=== PATIENT | male | born 1940 | race Caucasian/White ===

== ENCOUNTER 2016-11-11 15:08 | Emergency (ER) | payer MEDICARE, OTHER ==
[~2016-11-11] VITALS: Ht 188 cm; Wt 86.2 kg
[~2016-11-11 15:08] MED LIST: ASPI-999 PO; BACL10TA PO; GLUC500C2 PO; KETO-22 PO; OMG1KC PO
[2016-11-11] MEDS ORDERED: MULT-1049 PO (15:31)
[2016-11-11] MEDS ORDERED: [UNRECOGNIZED DRUG - OTHER] PO (15:31)
[2016-11-11] MEDS ORDERED: HYAL1CAP PO (15:31)
[2016-11-11] MEDS ORDERED: MAGN400T39 PO (15:31)
[2016-11-11 15:37] LABS: BASOPHILS % (AUTO) 0 % (0-10); EOSINOPHILS # (AUTO) 0.1 10^3/uL (0.0-0.3); EOSINOPHILS % (AUTO) 1 % (0-10); LYMPHOCYTES # (AUTO) 3.4 X 10^3 (1.0-4.0); LYMPHOCYTES % (AUTO) 45 % (12-44); MEAN CORPUSCULAR HEMOGLOBIN 28 PG (25-34); MEAN CORPUSCULAR HGB CONC 33 G/DL (32-36); MEAN CORPUSCULAR VOLUME 87 FL (80-99); MEAN PLATELET VOLUME 10.2 FL (7.4-10.4); MONOCYTES # (AUTO) 0.7 X 10^3 (0.0-1.0); MONOCYTES % (AUTO) 9 % (0-12); NEUTROPHILS # (AUTO) 3.4 X 10^3 (1.8-7.8); NEUTROPHILS % (AUTO) 45 % (42-75); PLATELET COUNT 281 10^3/uL (130-400); RED BLOOD COUNT 4.76 10^6/uL (4.35-5.85); RED CELL DISTRIBUTION WIDTH 14.6 % (10.0-14.5); WHITE BLOOD COUNT 7.7 10^3/uL (4.3-11.0)
[2016-11-11 15:40] LABS: BILIRUBIN,URINE NEGATIVE (NEGATIVE); KETONES,URINE NEGATIVE (NEGATIVE); LEUKOCYTE ESTERASE ,URINE NEGATIVE (NEGATIVE); NITRITE,URINE NEGATIVE (NEGATIVE); PH,URINE 6 (5-9); PROTEIN,URINE NEGATIVE (NEGATIVE); UROBILINOGEN,URINE NORMAL (NORMAL)
[2016-11-11 15:49] LABS: ALANINE AMINOTRANSFERASE 40 U/L (0-55); ALBUMIN 4.6 G/DL (3.2-4.5); ANION GAP 11 MMOL/L (5-14); ASPARTATE AMINO TRANSFERASE 38 U/L (5-34); BILIRUBIN,TOTAL 0.5 MG/DL (0.1-1.0); BLOOD UREA NITROGEN 14 MG/DL (7-18); BUN/CREATININE RATIO 15; CALCIUM 9.1 MG/DL (8.5-10.1); CARBON DIOXIDE 24 MMOL/L (21-32); CHLORIDE 101 MMOL/L (98-107); CREATININE SERUM 0.93 MG/DL (0.60-1.30); GFR ESTIMATED > 60; GLUCOSE 102 MG/DL (70-105); POTASSIUM 3.9 MMOL/L (3.6-5.0); SODIUM 136 MMOL/L (135-145); TOTAL PROTEIN 7.4 G/DL (6.4-8.2)
--- NOTE | 2016-11-11 16:25 | ED Abdominal Pain ---
General Chief Complaint: Abdominal/GI Problems Stated Complaint: ABD PAIN Nursing Triage Note: PT CO OF ABD PAIN SINCE THIS AFTERNOON, HAS PAIN, NO N/V/D, JUST BLOATING Sepsis Screen: No Definite Risk Source of Information: Patient Exam Limitations: No Limitations History of Present Illness Time Seen By Provider: 16:00 Initial Comments The patient is a 75-year-old white male who reports that 5 hours or slightly more prior to presentation he had taken a bowl of oatmeal with granola on the top. Shortly after eating this he was stricken by sharp pain in the abdomen just above the umbilicus. There was no real radiation to the back. There was no nausea vomiting or diarrhea. He has never suffered a pain like this before. He had an appendectomy many years ago but no other surgery. He also reports having had a cardiac angiogram approximately 15 years ago which was said to be normal. The pain abated briefly and he had chicken noodle soup and again had sharp onset of pain. Timing/Duration: 4-6 Hours Severity/Quality: Moderate, Severe Location: Periumbilical Radiation: No Radiation Activities at Onset: None Allergies and Home Medications Allergies Coded Allergies: Shellfish (Verified Allergy, Unknown, 12/13/07) Sulfa (Sulfonamide Antibiotics) (Verified Allergy, Unknown, 12/13/07) Home Medications Unknown Dose PO (Reported) Aspirin 81 Mg Tab.chew 81 MG PO DAILY (Reported) Glucosamine Sulfate 500 Mg Capsule 500 MG PO DAILY (Reported) Hyalur AC/Chond Sul/Colg II/Aa 1 Each Capsule Unknown Dose PO DAILY (Reported) Magnesium Oxide 400 Mg Tablet Unknown Dose PO DAILY (Reported) Multivitamin-Min/Iron/FA/Vit K 1 Each Tablet 1 EACH PO DAILY (Reported) Savage 3 Polyunsat Fatty Acids 1,000 Mg Cap 1,000 MG PO DAILY (Reported) Review of Systems Constitutional: see HPI EENTM: No Symptoms Reported Respiratory: No Symptoms Reported Cardiovascular: No Symptoms Reported Gastrointestinal: See HPI Genitourinary: No Symptoms Reported Musculoskeletal: no symptoms reported Skin: no symptoms reported Psychiatric/Neurological: No Symptoms Reported Past Umcdiek-Tjwthq-Cdmxuf Hx Patient Social History Alcohol Use: Denies Use Recreational Drug Use: No Smoking Status: Never a Smoker Recent Foreign Travel: No Contact w/Someone Who Travel: No Recent Infectious Disease Expo: No Recent Hopitalizations: No Physical Abuse Screen: No Sexual Abuse: No Surgeries HX Surgeries: Yes (INGUINAL HERNIA, CARDIAC ABLATION) Surgeries: Abdominal, Appendectomy, Cardiac Respiratory Hx Respiratory Disorders: No Cardiovascular Hx Cardiac Disorders: Yes (CARDIAC ABLATION) Cardiac Disorders: Atrial Fibrillation, Irregular Heartbeat Neurological Hx Neurological Disorders: No Reproductive System Hx Reproductive Disorders: No Sexually Transmitted Disease: No HIV/AIDS: No Genitourinary Hx Genitourinary Disorders: No Gastrointestinal Hx Gastrointestinal Disorders: No Musculoskeletal Hx Musculoskeletal Disorders: No Endocrine Hx Endocrine Disorders: No HEENT HX ENT Disorders: No Cancer Hx Cancer: No Psychosocial Hx Psychiatric Problems: No Integumentary HX Skin/Integumentary Disorder: No Blood Transfusions Hx Blood Disorders: No Physical Exam Vital Signs VS - Last 72 Hours, by Label 11/11/16 15:15 Temp 97.2 Pulse 82 Resp 16 B/P 166/97 Pulse Ox 99 Capillary Refill : Less Than 3 Seconds General Appearance: mild distress HEENT: normal ENT inspection Neck: full range of motion Respiratory: chest non-tender lungs clear normal breath sounds no respiratory distress no accessory muscle use Cardiovascular: normal peripheral pulses regular rate, rhythm no edema no gallop no JVD no murmur Gastrointestinal: guarding Extremities: normal range of motion Back: normal inspection 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 no motor/sensory deficits alert normal mood/affect oriented x 3 Skin: normal color warm/dry Lymphatic: no adenopathy Progress/Results/Core Measures Results/Orders Lab Results Laboratory Tests Test 11/11/16 15:20 11/11/16 15:30 Range/Units Alanine Aminotransferase (ALT/SGPT) 40 0-55 U/L Albumin 4.6 H 3.2-4.5 G/DL Alkaline Phosphatase 90 40-136 U/L Anion Gap 11 5-14 MMOL/L Aspartate Amino Transf (AST/SGOT) 38 H 5-34 U/L BUN/Creatinine Ratio 15 Basophils # (Auto) 0.0 0.0-0.1 10^3/uL Basophils (%) (Auto) 0 0-10 % Blood Urea Nitrogen 14 7-18 MG/DL Calcium Level 9.1 8.5-10.1 MG/DL Carbon Dioxide Level 24 21-32 MMOL/L Chloride Level 101 98-107 MMOL/L Creatinine 0.93 0.60-1.30 MG/DL Eosinophils # (Auto) 0.1 0.0-0.3 10^3/uL Eosinophils (%) (Auto) 1 0-10 % Estimat Glomerular Filtration Rate > 60 Glucose Level 102 70-105 MG/DL Hematocrit 42 40-54 % Hemoglobin 13.5 13.3-17.7 G/DL Lymphocytes # (Auto) 3.4 1.0-4.0 X 10^3 Lymphocytes (%) (Auto) 45 H 12-44 % Mean Corpuscular Hemoglobin 28 25-34 PG Mean Corpuscular Hemoglobin Concent 33 32-36 G/DL Mean Corpuscular Volume 87 80-99 FL Mean Platelet Volume 10.2 7.4-10.4 FL Monocytes # (Auto) 0.7 0.0-1.0 X 10^3 Monocytes (%) (Auto) 9 0-12 % Neutrophils # (Auto) 3.4 1.8-7.8 X 10^3 Neutrophils (%) (Auto) 45 42-75 % Platelet Count 281 130-400 10^3/uL Potassium Level 3.9 3.6-5.0 MMOL/L Red Blood Count 4.76 4.35-5.85 10^6/uL Red Cell Distribution Width 14.6 H 10.0-14.5 % Sodium Level 136 135-145 MMOL/L Total Bilirubin 0.5 0.1-1.0 MG/DL Total Protein 7.4 6.4-8.2 G/DL White Blood Count 7.7 4.3-11.0 10^3/uL Urine Bacteria NEGATIVE /HPF Urine Bilirubin NEGATIVE NEGATIVE Urine Casts NONE /LPF Urine Clarity CLEAR Urine Color YELLOW Urine Crystals NONE /LPF Urine Culture Indicated NO Urine Glucose (UA) NEGATIVE NEGATIVE Urine Ketones NEGATIVE NEGATIVE Urine Leukocyte Esterase NEGATIVE NEGATIVE Urine Mucus NEGATIVE /LPF Urine Nitrite NEGATIVE NEGATIVE Urine Protein NEGATIVE NEGATIVE Urine RBC NONE /HPF Urine RBC (Auto) NEGATIVE NEGATIVE Urine Specific [place] 1.015 L 1.016-1.022 Urine Squamous Epithelial Cells NONE /HPF Urine Urobilinogen NORMAL NORMAL MG/DL Urine WBC NONE /HPF Urine pH 6 5-9 My Orders Orders-HANG MOSS MD Cbc With Automated Diff (11/11/16 15:29) Comprehensive Metabolic Panel (11/11/16 15:29) Ua Culture If Indicated (11/11/16 15:29) Ct Abdomen/Pelvis W (11/11/16 16:19) Iohexol Injection (Omnipaque 350 Mg/Ml 1 (11/11/16 16:30) Ns (Ivpb) (Sodium Chloride 0.9% Ivpb Bag (11/11/16 16:30) Diphenhydramine Injection (Benadryl Inje (11/11/16 16:45) Methylprednisolone Sod Succ (Solu-Medrol (11/11/16 16:45) Vital Signs/I&O Vital Sign - Last 12Hours 11/11/16 15:15 Temp 97.2 Pulse 82 Resp 16 B/P 166/97 Pulse Ox 99 Blood Pressure Mean: 120 Departure Communication Progress Notes 1640 the patient voiced concerns about the contrast dye for the CT scan after he arrived at the scanner. He reported that a few years ago while on the [facility] [place] he had some sort of rash and stomach pain after eating crab. He then thought that there was some concern about iodine and the seafood. Despite my concerns about the possibility of aortic aneurysm he wishes to defer any consideration of a CT scan as the pain seems to have left him as well. He was advised that my best advice would be to proceed at this time and that we could use a preop of Benadryl and steroid to reduce the likelihood of reaction even though this is iodine contrast and not the element iodine Impression Impression: Primary Impression: abdominal pain Disposition: 01 HOME, SELF-CARE Condition: Improved Departure-Patient Inst. Decision time for Depature: 16:52 Referrals: CONY BAUTISTA MD (PCP/Family) Primary Care Physician Patient Instructions: Acute Abdomen (Belly Pain), Adult (DC) Add. Discharge Instructions: All discharge instructions reviewed with patient and/or family. Voiced understanding. Take clear liquids tonight. If no further pain resume diet in the a.m. If pain returns return to the emergency room to complete workup HANG MOSS MD Nov 11, 2016 16:25
[2016-11-11] MEDS ORDERED: NS 100 ML (IVPB) BAG IV ONE (16:30)
[2016-11-11] MEDS ORDERED: IOHEXOL 350 MG/ML 100 ML (OMNIPAQUE 350) VIAL IV ONE (16:30)
[2016-11-11] MEDS ORDERED: methylPREDNISolone 125 MG (Solu-MEDROL) VIAL IVP ONE (16:45)
[2016-11-11] MEDS ORDERED: diphenhydrAMINE 50 MG/ML INJ (BENADRYL) IVP ONE (16:45)
[2016-11-11 16:55] VITALS: BP 166/97
== END 2016-11-11 16:59 | disposition home or self-care (01) ==
LOC: EDUNIT# 15:08 → ER 15:10
DX: R10.13 Epigastric pain (principal); I48.2 Chronic atrial fibrillation; Z79.82 Long term (current) use of aspirin; Z79.899 Other long term (current) drug therapy
CPT/HCPCS: 36415; 80053; 81000; 85025

== ENCOUNTER 2018-11-24 13:50 | Emergency (ER) | payer MEDICARE, OTHER ==
[~2018-11-24] VITALS: Ht 185.4 cm; Wt 86.2 kg
[~2018-11-24 13:50] MED LIST changes: +HYAL1CAP PO; +MAGN400T39 PO; +MULT-1049 PO; +[UNRECOGNIZED DRUG - OTHER] PO
--- OUTSIDE RECORDS SUMMARY | 2018-11-24 13:54 | XMS REPORT | Continuity of Care Document ---
Author Author [facility] Organization [facility] Address Unknown Phone Unavailable Allergies Active Description Code Type Severity Reaction Onset Reported/Identified Relationship to Patient Clinical Status Yes Shellfish [id number] Drug Allergy Unknown N/A 12/13/2007 Yes Sulfa (Sulfonamide Antibiotics) [id number] Drug Allergy Unknown N/A 2007 Medications There is no data. Problems Date Dx Coded Attending Type Code Diagnosis Diagnosed By 01/09/2013 Ot 437.7 TRANSIENT GLOBAL AMNESIA 01/09/2013 Ot 780.93 MEMORY LOSS 06/24/2015 DARIUS HARP MIKE Vishal Ot 786.52 PAINFUL RESPIRATION 06/30/2015 CONY BAUTISTA MD Ot 211.3 BENIGN NEOPLASM LG BOWEL 06/30/2015 CONY BAUTISTA MD Ot 214.3 LIPOMA INTRA-ABDOMINAL 06/30/2015 CONY BAUTISTA MD Ot 562.10 DIVERTICULOSIS COLON (W/O MENT OF HEMORR 06/30/2015 CONY BAUTISTA MD Ot 564.00 UNSPEC CONSTIPATION 06/30/2015 CONY BAUTISTA MD Ot 783.21 LOSS OF WEIGHT 11/11/2016 HANG MOSS MD Ot I48.2 CHRONIC ATRIAL FIBRILLATION 11/11/2016 HANG MOSS MD Ot R10.13 EPIGASTRIC PAIN 11/11/2016 HANG MOSS MD Ot Z79.82 NURSING HOME (CURRENT) USE OF ASPIRIN 11/11/2016 HANG MOSS MD Ot Z79.899 OTHER NURSING HOME (CURRENT) DRUG THERAPY 11/11/2016 Ot 437.7 TRANSIENT GLOBAL AMNESIA 11/11/2016 CONY BAUTISTA MD Ot 783.21 LOSS OF WEIGHT 11/11/2016 CONY BAUTISTA MD Ot 787.99 OTHER GI SYSTEM SYMPTOMS 11/11/2016 CONY BAUTISTA MD Ot 789.00 ABDOMINAL PAIN, UNSPECIFIED SITE 11/11/2016 CONY BAUTISTA MD Ot V72.84 EXAM PRE-OPERATIVE NOS 11/14/2016 HANG MOSS MD Ot I48.2 CHRONIC ATRIAL FIBRILLATION 11/14/2016 HANG MOSS MD Ot R10.13 EPIGASTRIC PAIN 11/14/2016 HANG MOSS MD Ot Z79.82 MOUNTER FLUTES AND PICCOLOS (CURRENT) USE OF ASPIRIN 11/14/2016 HANG MOSS MD Ot Z79.899 OTHER NURSING HOME (CURRENT) DRUG THERAPY 11/17/2016 HANG MOSS MD Ot I48.2 CHRONIC ATRIAL FIBRILLATION 11/17/2016 HANG MOSS MD Ot R10.13 EPIGASTRIC PAIN 11/17/2016 HANG MOSS MD Ot Z79.82 MOUNTER FLUTES AND PICCOLOS (CURRENT) USE OF ASPIRIN 11/17/2016 HANG MOSS MD Ot Z79.899 OTHER NURSING HOME (CURRENT) DRUG THERAPY 06/21/2018 Ot 437.7 TRANSIENT GLOBAL AMNESIA 06/21/2018 MICHELE KIMBLE, CONY Ryder Ot 783.21 LOSS OF WEIGHT 06/21/2018 MICHELE KIMBLE, CONY Ryder Ot 787.99 OTHER GI SYSTEM SYMPTOMS 06/21/2018 MICHELE KIMBLE, CONY Ryder Ot 789.00 ABDOMINAL PAIN, UNSPECIFIED SITE 06/21/2018 MICHELE KIMBLE, CONY Ryder Ot V72.84 EXAM PRE-OPERATIVE NOS 06/21/2018 KATIUSKA PEREZ APRN Ot I48.91 UNSPECIFIED ATRIAL FIBRILLATION 06/21/2018 KATIUSKA PEREZ APRN Ot M79.602 PAIN IN LEFT ARM 06/21/2018 KATIUSKA PEREZ APRN Ot S46.212A STRAIN OF MUSC/FASC/TEND PRT BICEPS, LEF 06/21/2018 KATIUSKA PEREZ APRN Ot X50.0XXA OVEREXERTION FROM STRENUOUS MOVEMENT OR 06/21/2018 KATIUSKA PEREZ APRN Ot Z79.82 MOUNTER FLUTES AND PICCOLOS (CURRENT) USE OF ASPIRIN 06/21/2018 KATIUSKA PEREZ APRN Ot Z88.2 ALLERGY STATUS TO SULFONAMIDES STATUS 06/21/2018 KATIUSKA PEREZ APRN Ot Z90.89 ACQUIRED ABSENCE OF OTHER ORGANS 06/25/2018 KATIUSKA PEREZ APRN Ot I48.91 UNSPECIFIED ATRIAL FIBRILLATION 06/25/2018 KATIUSKA PEREZ APRN Ot M79.602 PAIN IN LEFT ARM 06/25/2018 KATIUSKA PEREZ APRN Ot S46.212A STRAIN OF MUSC/FASC/TEND PRT BICEPS, LEF 06/25/2018 KATIUSKA PEREZ APRN Ot X50.0XXA OVEREXERTION FROM STRENUOUS MOVEMENT OR 06/25/2018 KATIUSKA PEREZ APRN Ot Z79.82 NURSING HOME (CURRENT) USE OF ASPIRIN 06/25/2018 KATIUSKA PEREZ APRN Ot Z88.2 ALLERGY STATUS TO SULFONAMIDES STATUS 06/25/2018 KATIUSKA PEREZ APRN Ot Z90.89 ACQUIRED ABSENCE OF OTHER ORGANS 06/28/2018 CRUZITO DO, ANA F Ot M67.824 OTHER SPECIFIED DISORDERS OF TENDON, LEF 06/28/2018 CRUZITO DO, ANA F Ot S46.212A STRAIN OF MUSC/FASC/TEND PRT BICEPS, LEF 07/20/2018 CRUZITO DO, ANA F Ot M67.824 OTHER SPECIFIED DISORDERS OF TENDON, LEF 07/20/2018 CRUZITO DO, ANA F Ot S46.212A STRAIN OF MUSC/FASC/TEND PRT BICEPS, LEF 07/23/2018 CRUZITO DO, ANA F Ot M67.824 OTHER SPECIFIED DISORDERS OF TENDON, LEF 07/23/2018 CRUZITO DO, ANA F Ot S46.212A STRAIN OF MUSC/FASC/TEND PRT BICEPS, LEF Procedures There is no data. Results Test Result Range Complete blood count (CBC) with automated white blood cell (WBC) differential - 11/11/16 15:20 Blood leukocytes automated count (number/volume) 7.7 10*3/uL 4.3-11.0 Blood erythrocytes automated count (number/volume) 4.76 10*6/uL 4.35-5.85 Venous blood hemoglobin measurement (mass/volume) 13.5 g/dL 13.3-17.7 Blood hematocrit (volume fraction) 42 % 40-54 Automated erythrocyte mean corpuscular volume 87 [foz_us] 80-99 Automated erythrocyte mean corpuscular hemoglobin (mass per erythrocyte) 28 pg 25-34 Automated erythrocyte mean corpuscular hemoglobin concentration measurement ( mass/volume) 33 g/dL 32-36 Automated erythrocyte distribution width ratio 14.6 % 10.0-14.5 Automated blood platelet count (count/volume) 281 10*3/uL 130-400 Automated blood platelet mean volume measurement 10.2 [foz_us] 7.4-10.4 Automated blood neutrophils/100 leukocytes 45 % 42-75 Automated blood lymphocytes/100 leukocytes 45 % 12-44 Blood monocytes/100 leukocytes 9 % 0-12 Automated blood eosinophils/100 leukocytes 1 % 0-10 Automated blood basophils/100 leukocytes 0 % 0-10 Blood neutrophils automated count (number/volume) 3.4 10*3 1.8-7.8 Blood lymphocytes automated count (number/volume) 3.4 10*3 1.0-4.0 Blood monocytes automated count (number/volume) 0.7 10*3 0.0-1.0 Automated eosinophil count 0.1 10*3/uL 0.0-0.3 Automated blood basophil count (count/volume) 0.0 10*3/uL 0.0-0.1 Comprehensive metabolic panel - 11/11/16 15:20 Serum or plasma sodium measurement (moles/volume) 136 mmol/L 135-145 Serum or plasma potassium measurement (moles/volume) 3.9 mmol/L 3.6-5.0 Serum or plasma chloride measurement (moles/volume) 101 mmol/L 98-107 Carbon dioxide 24 mmol/L 21-32 Serum or plasma anion gap determination (moles/volume) 11 mmol/L 5-14 Serum or plasma urea nitrogen measurement (mass/volume) 14 mg/dL 7-18 Serum or plasma creatinine measurement (mass/volume) 0.93 mg/dL 0.60-1.30 Serum or plasma urea nitrogen/creatinine mass ratio 15 NRG Serum or plasma creatinine measurement with calculation of estimated glomerular filtration rate > NRG Serum or plasma glucose measurement (mass/volume) 102 mg/dL 70-105 Serum or plasma calcium measurement (mass/volume) 9.1 mg/dL 8.5-10.1 Serum or plasma total bilirubin measurement (mass/volume) 0.5 mg/dL 0.1-1.0 Serum or plasma alkaline phosphatase measurement (enzymatic activity/volume) 90 U/L 40-136 Serum or plasma aspartate aminotransferase measurement (enzymatic activity/ volume) 38 U/L 5-34 Serum or plasma alanine aminotransferase measurement (enzymatic activity/volume ) 40 U/L 0-55 Serum or plasma protein measurement (mass/volume) 7.4 g/dL 6.4-8.2 Serum or plasma albumin measurement (mass/volume) 4.6 g/dL 3.2-4.5 Complete urinalysis with reflex to culture - 11/11/16 15:30 Urine color determination YELLOW NRG Urine clarity determination CLEAR NRG Urine pH measurement by test strip 6 5-9 Specific gravity of urine by test strip 1.015 1.016- 1.022 Urine protein assay by test strip, semi-quantitative NEGATIVE NEGATIVE Urine glucose detection by automated test strip NEGATIVE NEGATIVE Erythrocytes detection in urine sediment by light microscopy NEGATIVE NEGATIVE Urine ketones detection by automated test strip NEGATIVE NEGATIVE Urine nitrite detection by test strip NEGATIVE NEGATIVE Urine total bilirubin detection by test strip NEGATIVE NEGATIVE Urine urobilinogen measurement by automated test strip (mass/volume) NORMAL NORMAL Urine leukocyte esterase detection by dipstick NEGATIVE NEGATIVE Automated urine sediment erythrocyte count by microscopy (number/high power field) NONE NRG Automated urine sediment leukocyte count by microscopy (number/high power field ) NONE NRG Bacteria detection in urine sediment by light microscopy NEGATIVE NRG Squamous epithelial cells detection in urine sediment by light microscopy NONE NRG Crystals detection in urine sediment by light microscopy NONE NRG Casts detection in urine sediment by light microscopy NONE NRG Mucus detection in urine sediment by light microscopy NEGATIVE NRG Complete urinalysis with reflex to culture NO NRG Encounters ACCT No. Visit Date/Time Discharge Status Pt. Type Provider Facility Loc./Unit Complaint [id number] 06/28/2018 11:01:00 06/28/2018 23:59:59 CLS Outpatient ANA EAST DO [facility] RAD DISTAL BICEPS TENDON RUPTURE [id number] 06/21/2018 10:45:00 06/21/2018 11:48:00 DIS Emergency KATIUSKA PEREZ APRN [facility] ER LT ELBOW/UPPER ARM PAIN [id number] 11/11/2016 15:10:00 11/11/2016 16:59:00 DIS Emergency HANG MOSS MD [facility] ER ABD PAIN [id number] 06/30/2015 06:58:00 06/30/2015 09:15:00 DIS [facility] [id number] 06/25/2015 06:03:00 06/25/2015 23:59:59 CLS Outpatient CONY BAUTISTA MD [facility] PREOP WEIGHT LOSS; ABDOMINAL PAIN [id number] 06/24/2015 05:24:00 06/24/2015 06:39:00 DIS Emergency MIKE MCCOY DO [facility] ER CP [id number] 01/14/2013 07:46:00 Document Registration [id number] 01/09/2013 15:04:00 Document Registration
[2018-11-24 14:04] LABS: BASOPHILS % (AUTO) 0 % (0-10); EOSINOPHILS # (AUTO) 0.1 10^3/uL (0.0-0.3); EOSINOPHILS % (AUTO) 1 % (0-10); HEMATOCRIT 38 % (40-54); HEMOGLOBIN 12.1 G/DL (13.3-17.7); LYMPHOCYTES # (AUTO) 2.5 X 10^3 (1.0-4.0); LYMPHOCYTES % (AUTO) 33 % (12-44); MEAN CORPUSCULAR HEMOGLOBIN 26 PG (25-34); MEAN CORPUSCULAR HGB CONC 32 G/DL (32-36); MEAN CORPUSCULAR VOLUME 81 FL (80-99); MEAN PLATELET VOLUME 9.5 FL (7.4-10.4); MONOCYTES # (AUTO) 0.5 X 10^3 (0.0-1.0); MONOCYTES % (AUTO) 7 % (0-12); NEUTROPHILS # (AUTO) 4.5 X 10^3 (1.8-7.8); NEUTROPHILS % (AUTO) 59 % (42-75); PLATELET COUNT 325 10^3/uL (130-400); RED CELL DISTRIBUTION WIDTH 16.6 % (10.0-14.5); WHITE BLOOD COUNT 7.6 10^3/uL (4.3-11.0)
--- NOTE | 2018-11-24 14:17 | ED Neurological Problem ---
General Chief Complaint: Neuro-Stroke Like Symptoms Stated Complaint: MEMORY LOSS,R ARM NUMBNESS Source: patient, spouse Exam Limitations: no limitations History of Present Illness Date Seen by Provider: Nov 24, 2018 Time Seen by Provider: 13:50 Initial Comments Patient presents to ER by private conveyance with his significant other and chief complaint that for approximately one hour the patient has been complaining that he has memory problems remembering whether it is 2018 or 2019. They were at [place] when he started feeling this way and had some pins and needles numbness sensation down the back of his right arm from the shoulder all the way down to the right pinky. He's been having an achy neck and fluid on his ears for the past week with the left being worse than right. No fevers chills cough nausea vomiting or shortness of breath. No chest pain. No history of stroke. Historically the patient had a cardiac ablation. He denies any palpitations or chest pain. His who accompanies him did not notice any slurring of speech, facial asymmetry, disturbance of his gait etc. Allergies and Home Medications Allergies Coded Allergies: Shellfish (Verified Allergy, Unknown, 12/13/07) Sulfa (Sulfonamide Antibiotics) (Verified Allergy, Unknown, 12/13/07) Home Medications Aspirin 81 Mg Tab.chew, 81 MG PO DAILY, (Reported) Glucosamine Sulfate 500 Mg Capsule, 500 MG PO DAILY, (Reported) Hyalur AC/Chond Sul/Colg II/Aa 1 Each Capsule, Unknown Dose PO DAILY, (Reported) Magnesium Oxide 400 Mg Tablet, Unknown Dose PO DAILY, (Reported) Multivitamin-Min/Iron/FA/Vit K 1 Each Tablet, 1 EACH PO DAILY, (Reported) Superior 3 Polyunsat Fatty Acids 1,000 Mg Cap, 1,000 MG PO DAILY, (Reported) Patient Home Medication List Home Medication List Reviewed: Yes Review of Systems Review of Systems Constitutional: No chills, No diaphoresis, No fever, No malaise Eyes: Denies Blindness, Denies Blurred Vision, Denies Drainage Ears, Nose, Mouth, Throat: see HPI; denies ear pain, denies ear discharge, denies nose discharge, denies throat pain, denies throat swelling Respiratory: No cough, No dyspnea on exertion, No short of breath Cardiovascular: No chest pain, No Hx of Intervention, No palpitations Gastrointestinal: No abdominal pain, No constipation, No diarrhea, No nausea Genitourinary: No discharge, No dysuria Past Ancddpz-Wmxhui-Lyqluc Hx Patient Social History Alcohol Use: Occasionally Uses Alcohol Beverage of Choice: Whiskey Recreational Drug Use: No Smoking Status: Never a Smoker 2nd Hand Smoke Exposure: No Recent Foreign Travel: No Contact w/Someone Who Travel: No Recent Hopitalizations: No Past Medical History Surgeries: Yes (INGUINAL HERNIA, CARDIAC ABLATION) Abdominal, Appendectomy, Cardiac Respiratory: No Cardiac: Yes (CARDIAC ABLATION) Atrial Fibrillation, Irregular Heartbeat Neurological: No Reproductive Disorders: No Sexually Transmitted Disease: No HIV/AIDS: No Gastrointestinal: No Musculoskeletal: No Endocrine: No Cancer: No Psychosocial: No Integumentary: No Blood Disorders: No Physical Exam Vital Signs Vital Signs - First Documented 11/24/18 13:52 Temp 97.0 Pulse 87 Resp 18 B/P (MAP) 172/100 (124) Pulse Ox 98 O2 Delivery Room Air Capillary Refill : Height, Weight, BMI Height: 6'2.00" Weight: 191lbs. oz. 86.357468bh; BMI Method:Stated General Appearance: WD/WN, no apparent distress HEENT: PERRL/EOMI, normal ENT inspection, pharynx normal, TM abnormal (L) ( mucoid effusion without erythema, injection or loss of the landmarks) Neck: full range of motion, supple (bilateral), normal inspection, tender lateral Respiratory: chest non-tender, lungs clear, normal breath sounds, no respiratory distress, no accessory muscle use Cardiovascular: normal peripheral pulses, regular rate, rhythm, no edema, no murmur Gastrointestinal: normal bowel sounds, non tender, soft Extremities: normal range of motion, non-tender, no pedal edema, no calf tenderness, normal capillary refill Neurologic/Psychiatric: 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 Patient was able to remember the words given to him 15 minutes later.) Crainal Nerves: normal hearing, normal speech, PERRL Coordination/Gait: normal finger to nose, normal gait Motor/Sensory: no motor deficit, no sensory deficit, no pronator drift Skin: normal color Stroke Onset of Symptoms Date of Onset of Symptoms: Nov 24, 2018 Time of Symptom Onset: 13:00 Onset of Symptoms: Yes Symptoms onset unknown: No NIH Stroke Scale Assessment Select: Initial Level of Consciousness: 0=Alert (0), Level of Consciousness- Questions: 0=Answers both month/age (0), LOC Commands: 0=Performs both tasks (0) , Gaze: Normal (0), Visual Bates: 0=No visual loss (0), Facial Movement ( Facial Paresis): 0=Normal symmetrical mnt (0), Motor Function-Arms Right: 0=No drift (0), Motor Function-Arms Left: 0=No drift (0), Motor Function-Legs Right: 0=No drift (0), Motor Function-Legs Left: 0=No drift (0), Limb Ataxia: 0=Absent (0), Sensory: 0=Normal:no loss (0), Best Language: 0=No aphasia (0), Dysarthria : 0=Normal (0), Extinction & Inattention: 0=No abnormality (0), Total: 0 Stroke Thrombolytic Exclusion Age 18 or Over: Yes Acute intenal hemorrhage: No History of CVA: No Uncontrolled Coagulation Defec: No Intracranial Hemorrhage: No Severe Hypertension: No GI or Bleed: No Subarachnoid Hemorrhage: No Intracranial Neoplasm/Aneurysm: No Oral Anticoagulants: No Surgery or Trauma: No Puncture of Non-Compressible V: No Recent CPR: No Diabetic Hemorrhagic Retinopat: No Organ Biopsy: No Recent Obstetric Delivery: No Glucose: No (107) Significant Hepatic Dysfunctio: No NIH Stoke Scale >22: No Bacterial Endocarditis: No Pericarditis: No Improving Symptoms: Yes Platelets: No TPA Contraindication: No IV - TPa Received IV - TPa Procedure Performed?: Yes Progress/Results/Core Measures Results/Orders Lab Results Laboratory Tests Test 11/24/18 13:56 11/24/18 13:59 11/24/18 14:34 Range/Units White Blood Count 7.6 4.3-11.0 10^3/uL Red Blood Count 4.72 4.35-5.85 10^6/uL Hemoglobin 12.1 L 13.3-17.7 G/DL Hematocrit 38 L 40-54 % Mean Corpuscular Volume 81 80-99 FL Mean Corpuscular Hemoglobin 26 25-34 PG Mean Corpuscular Hemoglobin Concent 32 32-36 G/DL Red Cell Distribution Width 16.6 H 10.0-14.5 % Platelet Count 325 130-400 10^3/uL Mean Platelet Volume 9.5 7.4-10.4 FL Neutrophils (%) (Auto) 59 42-75 % Lymphocytes (%) (Auto) 33 12-44 % Monocytes (%) (Auto) 7 0-12 % Eosinophils (%) (Auto) 1 0-10 % Basophils (%) (Auto) 0 0-10 % Neutrophils # (Auto) 4.5 1.8-7.8 X 10^3 Lymphocytes # (Auto) 2.5 1.0-4.0 X 10^3 Monocytes # (Auto) 0.5 0.0-1.0 X 10^3 Eosinophils # (Auto) 0.1 0.0-0.3 10^3/uL Basophils # (Auto) 0.0 0.0-0.1 10^3/uL Prothrombin Time 14.1 12.2-14.7 SEC INR Comment 1.1 0.8-1.4 Activated Partial Thromboplast Time 29 24-35 SEC D-Dimer 0.30 0.00-0.49 UG/ML Sodium Level 136 135-145 MMOL/L Potassium Level 3.9 3.6-5.0 MMOL/L Chloride Level 102 98-107 MMOL/L Carbon Dioxide Level 24 21-32 MMOL/L Anion Gap 10 5-14 MMOL/L Blood Urea Nitrogen 19 H 7-18 MG/DL Creatinine 0.98 0.60-1.30 MG/DL Estimat Glomerular Filtration Rate > 60 BUN/Creatinine Ratio 19 Glucose Level 99 70-105 MG/DL Calcium Level 8.9 8.5-10.1 MG/DL Corrected Calcium 8.7 8.5-10.1 MG/DL Total Bilirubin 0.6 0.1-1.0 MG/DL Aspartate Amino Transf (AST/SGOT) 31 5-34 U/L Alanine Aminotransferase (ALT/SGPT) 30 0-55 U/L Alkaline Phosphatase 75 40-136 U/L Troponin I < 0.028 <0.028 NG/ML Total Protein 7.0 6.4-8.2 GM/DL Albumin 4.3 3.2-4.5 GM/DL Glucometer 107 70-110 MG/DL Urine Color YELLOW Urine Clarity CLEAR Urine pH 6 5-9 Urine Specific [place] 1.015 L 1.016-1.022 Urine Protein NEGATIVE NEGATIVE Urine Glucose (UA) NEGATIVE NEGATIVE Urine Ketones NEGATIVE NEGATIVE Urine Nitrite NEGATIVE NEGATIVE Urine Bilirubin NEGATIVE NEGATIVE Urine Urobilinogen NORMAL NORMAL MG/DL Urine Leukocyte Esterase NEGATIVE NEGATIVE Urine RBC (Auto) NEGATIVE NEGATIVE Urine RBC NONE /HPF Urine WBC RARE /HPF Urine Crystals NONE /LPF Urine Bacteria TRACE /HPF Urine Casts NONE /LPF Urine Mucus NEGATIVE /LPF Urine Culture Indicated NO My Orders Orders - MARY ANN,ILEANA J Cbc With Automated Diff (11/24/18 13:58) Protime With Inr (11/24/18 13:58) Partial Thromboplastin Time (11/24/18 13:58) Comprehensive Metabolic Panel (11/24/18 13:58) Fibrin Degradation Products (11/24/18 13:58) Troponin I (11/24/18 13:58) Ua Culture If Indicated (11/24/18 13:58) Chest 1 View, Ap/Pa Only (11/24/18 13:58) Ekg Tracing (11/24/18 13:58) Nothing By Mouth (11/24/18 Dinner) Accucheck Stat ONCE (11/24/18 13:58) Saline Lock/Iv-Start (11/24/18 13:58) Saline Lock/Iv-Start (11/24/18 13:58) Vital Signs Stroke Patient Q15M (11/24/18 13:58) Ct Head/Neck Wo (11/24/18 13:58) O2 (11/24/18 13:58) Intake & Output 06,14,22 (11/24/18 13:58) Monitor-Rhythm Ecg Trace Only (11/24/18 13:58) Dysphagia Screening Tool (11/24/18 13:58) Lipid Panel (11/25/18 06:00) Labetalol Injection (Normodyne Injection (11/24/18 15:15) Vital Signs/I&O 11/24/18 13:52 Temp 97.0 Pulse 87 Resp 18 B/P (MAP) 172/100 (124) Pulse Ox 98 O2 Delivery Room Air Progress Progress Note #1: Time: 14:23 Progress Note The patient has a NIH score of 0 therefore would not be a TPA candidate because her's nothing to potentially gain. There is some possibility he could be having a central lesion or stroke however nothing is seen on initial CT. More likely he 's having an impingement syndrome due to his aching neck for the past week causing a nerve radiculopathy or other impingement syndrome. As far as his memory his short-term and long-term memory seemed to be intact. They be some component of anxiety coupled with maybe some early dementia however at this point nothing pathologic is elicited on examination. Progress Note #2: Time: 15:35 Progress Note Patient's blood pressure was about 200/124 and we offered something for it today but he does not take any routine blood pressure medicines and says it has not been elevated. Most likely is related to anxiety about health issues. It has already come down to 166/101 with just rest after discussing the likely source of his symptoms. Since he has declined anything for blood pressure at this time we'll let him just follow up with primary care to discuss this next week. We've given him strict return precautions. Initial ECG Impression Date: Nov 24, 2018 Initial ECG Impression Time: 14:10 Initial ECG Rate: 83 Initial ECG Rhythm: Normal Sinus Initial ECG Intervals: Normal Initial ECG Impression: Normal, Nonspecific Changes Initial ECG Comparisson: Unchanged Comment Unchanged compared to [address] elevation or depression. Incomplete block. Diagnostic Imaging Diagonstic Imaging: Xray Plain Films/CT/US/NM/MRI: chest (1v) Comments NAME: BEBETO CALLOWAY [facility] REC#: [id number] PHYSICIAN: ILEANA REESE MD CC: YOUSIF WASHINGTON; ILEANA REESE Page 1 of 1 RADIOLOGY REPORT [facility] [place] [place] CC: YOUSIF WASHINGTON; ILEANA REESE Page 1 of 1 RADIOLOGY REPORT NAME: VALENTINCharoBEBETO BRITO [facility] REC#: [id number] PT STATUS: REG ER : 1940 PHYSICIAN: ILEANA REESE MD ADMIT DATE: 11/24/18/ER Signed Date of Exam: 11/24/18 CHEST 1 VIEW, AP/PA ONLY INDICATION: Stroke COMPARISON: 06/24/2015. FINDINGS: Single view of the chest demonstrate minimal cardiac enlargement. The lungs are clear. There is no pneumothorax. The osseous structures are normal. IMPRESSION: Minimal cardiac enlargement without pulmonary edema or infiltrate Dictated by: Dictated on workstation # [id number] Dict: 11/24/18 1415 Trans: 11/24/18 1425 Interpreted by: YOUSIF WASHINGTON Electronically signed by: YOUSIF WASHINGTON 11/24/18 142 Reviewed: Reviewed by Me Diagonstic Imaging: CT Plain Films/CT/US/NM/MRI: c-spine, head Comments NAME: BEBETO CALLOWAY [facility] REC#: [id number] PHYSICIAN: ILEANA REESE MD CC: MENDEL MILES MD; ILEANA REESE Page 2 of 2 RADIOLOGY REPORT [facility] [place] [place] CC: MENDEL MILES MD; ILEANA REESE Page 1 of 2 RADIOLOGY REPORT NAME: BEBETO CALLOWAY [facility] REC#: [id number] PT STATUS: REG ER : 1940 PHYSICIAN: ILEANA REESE MD ADMIT DATE: 11/24/18/ER Signed Date of Exam: 11/24/18 CT HEAD/NECK WO PROCEDURE: CT head and neck without contrast. TECHNIQUE: Contiguous axial images were obtained from the skull base through the vertex. Noncontrast axial images were then obtained of the soft tissue of the neck. DATE: November 24, 2018. COMPARISON: CT head January 09, 2013. MRI brain January 09, 2013. INDICATION: 77-year-old male, evaluation for a stroke. Numbness of the right arm extending to the fifth digit. Neck pain. FINDINGS: There is proportional prominence of the ventricles and CSF spaces compatible with mild cerebral volume loss. There is no mass effect or midline shift. There is no acute intracranial hemorrhage. There is no abnormal extra-axial fluid collection. The visualized portions of the paranasal sinuses, mastoid air cells and middle ears are well aerated. There is no identified facet joint subluxation or dislocation. There is no asymmetric widening of the cervical disc spaces. There is no prominent prevertebral soft tissue swelling. There is a well corticated ossification above the anterior arch of C1 compatible with long-standing benign etiology. There is moderate to severe disc height loss at C5-C6 with posterior disc osteophyte complex. There is severe disc height loss at C6-C7 with small posterior disc osteophyte complex. CT is limited for assessment of disc pathology as well as additional non-bony causes of foraminal and spinal stenosis. There is a C5 benign vertebral body hemangioma. There is no identified acute fracture of the cervical spine. The visualized portions of the lung apices are clear. There is a low-attenuation right thyroid nodule measuring approximately 14 mm in size. There are bilateral carotid vascular calcifications. IMPRESSION: 1. No identified acute intracranial abnormality. 2. Mild cerebral volume loss. 3. No identified acute abnormality of the cervical spine. 4. Disc degenerative changes of the cervical spine most notable at C5-C6 and C6-C7. CT is limited for assessment of disc pathology as well as additional non-bony causes of foraminal and spinal stenosis. Dictated by: Dictated on workstation # [id number] Dict: 11/24/18 1414 Trans: 11/24/18 1440 Interpreted by: MENDEL MILES MD Electronically signed by: MENDEL MILES MD 11/24/18 1440 Reviewed: Reviewed by Me Consults : Consults Notes Dr Porras: Discussed the case imaging and he agrees that a impingement syndrome possible anxiety would be more likely. He does not think an MRI would be beneficial in this patient. He thinks rather outpatient follow-up with PCP with NSAIDs would be advisable. Departure Impression Primary Impression: Asymptomatic hypertension Additional Impressions: Ulnar nerve impingement Qualified Codes: G56.21 - Lesion of ulnar nerve, right upper limb Solitary nodule of right lobe of thyroid Disposition: 01 HOME, SELF-CARE Condition: Stable Departure-Patient Inst. Decision time for Depature: 15:30 Referrals: CONY EVANS MD (PCP/Family) Primary Care Physician Patient Instructions: Active Range of Motion Exercises, Arms and Hands, High Blood Pressure (DC) Add. Discharge Instructions: Follow-up the next 1-[address] Evans and discuss your blood pressure. Discuss the incidental nodule found on your right thyroid. Discuss strategies to relieve the numbness and tingling in her right arm. Start taking Naprosyn 1 capsules twice a day for the next 2 weeks to help relieve inflammation in your neck and shoulder. You can also use heating pads and massage. If you have questions about your memory then your primary care doctor can perform a battery of tests or refer you somewhere to have appropriate workup done. If you have difficulty walking, visual changes, slurred speech, difficulty speaking, facial droop or other worrisome symptoms then you should return to the nearest ER. All discharge instructions reviewed with patient and/or family. Voiced understanding. Copy Copies To 1: CONY EVANS MD, TITUS J Nov 24, 2018 14:17
[2018-11-24 14:22] LABS: ALANINE AMINOTRANSFERASE 30 U/L (0-55); ALBUMIN 4.3 GM/DL (3.2-4.5); ALKALINE PHOSPHATASE 75 U/L (40-136); BILIRUBIN,TOTAL 0.6 MG/DL (0.1-1.0); BUN/CREATININE RATIO 19; CALCIUM 8.9 MG/DL (8.5-10.1); CARBON DIOXIDE 24 MMOL/L (21-32); CHLORIDE 102 MMOL/L (98-107); CREATININE SERUM 0.98 MG/DL (0.60-1.30); GFR ESTIMATED > 60; GLUCOSE 99 MG/DL (70-105); POTASSIUM 3.9 MMOL/L (3.6-5.0); SODIUM 136 MMOL/L (135-145)
--- NOTE | 2018-11-24 14:31 | Diagnostic Imaging Report ---
PROCEDURE: CT head and neck without contrast. TECHNIQUE: Contiguous axial images were obtained from the skull base through the vertex. Noncontrast axial images were then obtained of the soft tissue of the neck. DATE: November 24, 2018. COMPARISON: CT head January 09, 2013. MRI brain January 09, 2013. INDICATION: 77-year-old male, evaluation for a stroke. Numbness of the right arm extending to the fifth digit. Neck pain. FINDINGS: There is proportional prominence of the ventricles and CSF spaces compatible with mild cerebral volume loss. There is no mass effect or midline shift. There is no acute intracranial hemorrhage. There is no abnormal extra-axial fluid collection. The visualized portions of the paranasal sinuses, mastoid air cells and middle ears are well aerated. There is no identified facet joint subluxation or dislocation. There is no asymmetric widening of the cervical disc spaces. There is no prominent prevertebral soft tissue swelling. There is a well corticated ossification above the anterior arch of C1 compatible with long-standing benign etiology. There is moderate to severe disc height loss at C5-C6 with posterior disc osteophyte complex. There is severe disc height loss at C6-C7 with small posterior disc osteophyte complex. CT is limited for assessment of disc pathology as well as additional non-bony causes of foraminal and spinal stenosis. There is a C5 benign vertebral body hemangioma. There is no identified acute fracture of the cervical spine. The visualized portions of the lung apices are clear. There is a low-attenuation right thyroid nodule measuring approximately 14 mm in size. There are bilateral carotid vascular calcifications. IMPRESSION: 1. No identified acute intracranial abnormality. 2. Mild cerebral volume loss. 3. No identified acute abnormality of the cervical spine. 4. Disc degenerative changes of the cervical spine most notable at C5-C6 and C6-C7. CT is limited for assessment of disc pathology as well as additional non-bony causes of foraminal and spinal stenosis. Dictated by: Dictated on workstation # [id number]
[2018-11-24 14:41] LABS: BILIRUBIN,URINE NEGATIVE (NEGATIVE); CLARITY,URINE CLEAR; COLOR,URINE YELLOW; GLUCOSE, URINE (UA) NEGATIVE (NEGATIVE); KETONES,URINE NEGATIVE (NEGATIVE); LEUKOCYTE ESTERASE ,URINE NEGATIVE (NEGATIVE); NITRITE,URINE NEGATIVE (NEGATIVE); PH,URINE 6 (5-9); PROTEIN,URINE NEGATIVE (NEGATIVE); UROBILINOGEN,URINE NORMAL (NORMAL)
[2018-11-24 14:55] LABS: FIBRIN DEGRADATION PRODUCTS 0.3 UG/ML (0.00-0.49); INR 1.1 (0.8-1.4); PROTHROMBIN TIME PATIENT 14.1 SEC (12.2-14.7)
[2018-11-24 14:58] LABS: BACTERIA,URINE TRACE /HPF; WBC,URINE RARE /HPF
[2018-11-24] MEDS: LABETALOL HCL 20 MG/4 ML VIAL IV ONE ×2 (15:18→15:25)
--- NOTE | 2018-11-24 15:26 | NUR ---
WHEN IN ROOM TO GIVE MEDS FOR B/P PATIENT AND VOICED CONCERN ABOUT TAKING MEDS DR REESE IN ROOM TALKED WITH PATIENT WILL NOT GIVE MEDS
[2018-11-24 15:38] VITALS: BP 166/101
== END 2018-11-24 15:38 | disposition home or self-care (01) ==
LOC: ER 13:50
DX: G56.21 Lesion of ulnar nerve, right upper limb (principal); I10 Essential (primary) hypertension; E04.1 Nontoxic single thyroid nodule; I48.91 Unspecified atrial fibrillation; Z88.2 Allergy status to sulfonamides; Z79.82 Long term (current) use of aspirin; Z98.890 Other specified postprocedural states; Z90.49 Acquired absence of other specified parts of digestive tract
CPT/HCPCS: 36415; 70450; 70490; 71045; 80053; 81000; 82962; 84484; 85025; 85379; 85610; 85730; 93005; 93041

== ENCOUNTER 2019-04-10 12:15 | Outpatient (CLI) | payer MEDICARE, OTHER ==
[~2019-04-10] VITALS: Ht 185.4 cm; Wt 88.9 kg
== END 2019-04-10 13:41 | disposition home or self-care (01) ==
LOC: PREOP 12:15
PROVIDERS: ATTEND Internal Medicine
DX: Z01.818 Encounter for other preprocedural examination (principal)

== ENCOUNTER 2019-04-26 08:25 | Day surgery (SDC) | payer MEDICARE, OTHER ==
--- NOTE | 2019-04-10 18:58 | HISTORY AND PHYSICAL ---
DATE OF SERVICE: [facility] HISTORY AND PHYSICAL HISTORY OF PRESENT ILLNESS: The patient is a 78-year-old white male, who initially presented to the office on the 03/28. He was having some mild intermittent heartburn and noted in previous emergency room record from the beginning of the year that he had mild microcytic anemia. He denied dysphagia, melena or bright red blood per rectum, but repeat CBC revealed that his hemoglobin was about a gram lower at 11.5 with an MCV, which is a little bit lower at 82. The remainder was unremarkable. He thought that he had had colonoscopy and EGD only several years ago pointed out it had been 10 years since we did perform EGD evaluation on him and stxa-wng-[id number]-half years since his last colonoscopy, at which time he had a couple of small polyps removed. He was concerned that he recalls waking up and having discomfort with his last colonoscopy and was fearful that this would happen again. We had a discussion about my concerns in regards to the fact that he has a normal diet intaking and today's dietary history gives some reasonable iron intake and the most likely source is slow GI tract loss. I discussed the fact that the procedure would be done under Diprivan anesthesia to ensure comfort at this time and after discussion of the rationale for further investigation and it has been longer than he had thought, he was willing to proceed with the procedure. His was present and questions were answered. A little over 15 minutes of [id number] care time was spent and the procedure was set up for 04/13/2019. Prep instructions with the Suprep kit were given. Job ID: [id number] DocumentID: [id number] Dictated Date: 04/03/2019 17:56:16 Investments Manager Date: 04/03/2019 18:16:06 Dictated By: CONY BAUTISTA MD
[~2019-04-26] VITALS: Ht 188 cm; Wt 88.9 kg
[~2019-04-26 08:25] MED LIST changes: +LACTATED RINGERS 1,000 ML IV ONE
[2019-04-26 09:00] VITALS: BP 153/99
[2019-04-26] MEDS ORDERED: LACTATED RINGERS 1,000 ML IV STA (09:11)
[2019-04-26] MEDS ORDERED: LIDOCAINE JELLY 2% 6 ML SYRINGE MM PRN (09:15)
[2019-04-26] MEDS ORDERED: HURRICAINE EXT TUBE (BENZOCAINE) XX PRN (09:15)
[2019-04-26] MEDS ORDERED: PROPOFOL INJECTION 50 ML IV ONE ×2 (09:31→09:53)
[2019-04-26] MEDS ORDERED: LIDOCAINE JELLY 2% 6 ML SYRINGE ONE (09:39)
[2019-04-26] MEDS ORDERED: HURRICAINE EXT TUBE (BENZOCAINE) ONE (09:45)
--- NOTE | 2019-04-26 09:53 | Pre-Op Note & Conscious Sedat ---
Pre-Operative Progress Note H&P Reviewed The H&P was reviewed, patient examined and no changes noted. Date H&P Reviewed: Apr 26, 2019 Time H&P Reviewed: 08:45 Conscious Sedation Pre-Proced ASA Score 2 For ASA 3 and 4: Consider anesthesia and medical clearance. Also, for patients with a history of failed moderate sedation consider anesthesia. Airway Lungs Heart ASA score ASA 1: a normal healthy patient ASA 2: a patient with a mild systemic disease (mid diabetes, controlled hypertension, obesity ASA 3: a patient with a severe systemic disease that limits activity (angina, COPD, prior Myocardial infarction) ASA 4: a patient with an incapacitating disease that is a constant threat to life (CHF, renal failure) ASA 5: a moribund patient not expected to survive 24 hrs. (ruptured aneurysm) ASA 6: a declared brain- patient whose organs are being harvested. For emergent operations, add the letter E after the classification Mallampati Classification Grade 1 Sedation Plan Analgesia, Amnesia, Plan communicated to team members, Discussed options with patient/fam, Discussed risks with patient/fam The patient is an appropriate candidate to undergo the planned procedure, sedation, and anesthesia. The patient immediately re-assessed prior to indication. CONY BAUTISTA MD Apr 26, 2019 09:53
[2019-04-26] MEDS ORDERED: ATROPINE INJ 0.4 MG/ML SDV ONE (10:15)
[2019-04-26 10:45] VITALS: BP 132/79
[2019-04-26 11:15] VITALS: BP 156/97
[2019-04-26 11:45] VITALS: BP 159/93
[2019-04-26 11:55] VITALS: BP 159/93
--- NOTE | 2019-04-26 16:05 | OPERATIVE REPORT ---
DATE OF SERVICE: 04/26/2019 PANENDOSCOPY SUMMARY INDICATION FOR THE PROCEDURE: Panendoscopy is performed for iron deficiency anemia and occult positive blood in the stool. DESCRIPTION OF PROCEDURE: The patient was placed in the left lateral decubitus position. Prior to undergoing colonoscopy, digital rectal evaluation was performed. Anal sphincter tone was normal and the perianal reflexes intact. Prostate is mildly enlarged, anodular and nontender to digital inspection. The colonoscope was then inserted into the rectum under direct visualization and advanced to the cecum. The cecum was identified by identification of the ileocecal valve and cecal strap. Photographic documentation was obtained. Careful inspection was made as the colonoscope withdrawn. FINDINGS: No evidence for internal or external hemorrhoids and the rectum was unremarkable. The sigmoid colon was unremarkable as well no evidence for diverticular disease was noted. Present in the descending colon was a diminutive 4-mm sessile adenomatous-appearing polyp, was biopsied and ablated and submitted for histopathology. Similar size polyps in similar uniform features were noted in the proximal transverse as well as distal transverse colon, both were biopsied and ablated. The polyp in the descending colon was somewhat friable and there was also a small amount of blood noted adjacent. There was no evidence for induration. The ascending colon and cecum were unremarkable. ASSESSMENT: Three diminutive polyps were removed, most significant one in the descending colon revealing a little bit of friability without induration and a little bit of bleeding. No other colonoscopic abnormalities were noted. Digital rectal evaluation of the prostate was compatible with mild benign prostatic hypertrophy. We then proceeded with esophagogastroduodenoscopy evaluation. DESCRIPTION OF PROCEDURE: The endoscope was inserted in the oral cavity and under direct visualization, the esophagus was intubated. The scope was passed down the esophagus to the stomach and second portion of the duodenum. Careful inspection was made as the endoscope was withdrawn. The patient tolerated the procedure well. FINDINGS: Proximal, mid and distal esophagus was unremarkable. There was some mild to moderate size hiatal hernia present without evidence for erosive esophagitis or Casarez's change. Photographic documentation was obtained. The cardia of the stomach was unremarkable. There is some mild linear streak erythema noted in the antrum of the stomach, a biopsy was obtained and submitted for histopathology. Pylorus was quite large. There were several small erosions in the distal duodenal bulb and second portion of the duodenum without evidence for overt ulceration. Photograph was obtained. ASSESSMENT: 1. Mild antral gastritis was present in addition to duodenitis without evidence for peptic ulcer disease. Biopsy was obtained from the antrum and submitted for Helicobacter and histopathology. 2. Small to moderate size hiatal hernia was present without evidence for erosive esophagitis or Casarez esophagus. Job ID: [id number] DocumentID: [id number] Dictated Date: 04/26/2019 11:42:56 Communications Officer Date: 04/26/2019 16:04:15 Dictated By: CONY BAUTISTA MD [facility]
== END 2019-04-26 11:55 | disposition home or self-care (01) ==
LOC: ENDO 08:25
PROVIDERS: ATTEND Internal Medicine
DX: D12.3 Benign neoplasm of transverse colon (principal); K63.5 Polyp of colon; K63.89 Other specified diseases of intestine; K29.70 Gastritis, unspecified, without bleeding; K29.80 Duodenitis without bleeding; K44.9 Diaphragmatic hernia without obstruction or gangrene; D50.9 Iron deficiency anemia, unspecified; N40.0 Benign prostatic hyperplasia without lower urinary tract symptoms

== ENCOUNTER 2019-06-17 08:02 | Emergency (ER) | payer MEDICARE, OTHER ==
[~2019-06-17] VITALS: Ht 188 cm; Wt 88.0 kg
[~2019-06-17 08:02] MED LIST changes: -LACTATED RINGERS 1,000 ML IV ONE
[2019-06-17 08:43] LABS: BASOPHILS % (AUTO) 0 % (0-10); EOSINOPHILS # (AUTO) 0.1 10^3/uL (0.0-0.3); EOSINOPHILS % (AUTO) 2 % (0-10); HEMATOCRIT 40 % (40-54); HEMOGLOBIN 12.5 G/DL (13.3-17.7); LYMPHOCYTES # (AUTO) 2.5 X 10^3 (1.0-4.0); LYMPHOCYTES % (AUTO) 42 % (12-44); MEAN CORPUSCULAR HEMOGLOBIN 25 PG (25-34); MEAN CORPUSCULAR HGB CONC 31 G/DL (32-36); MEAN CORPUSCULAR VOLUME 78 FL (80-99); MEAN PLATELET VOLUME 9.5 FL (7.4-10.4); MONOCYTES # (AUTO) 0.6 X 10^3 (0.0-1.0); MONOCYTES % (AUTO) 10 % (0-12); NEUTROPHILS # (AUTO) 2.7 X 10^3 (1.8-7.8); NEUTROPHILS % (AUTO) 46 % (42-75); PLATELET COUNT 326 10^3/uL (130-400); RED CELL DISTRIBUTION WIDTH 17.1 % (10.0-14.5); WHITE BLOOD COUNT 5.9 10^3/uL (4.3-11.0)
[2019-06-17] MEDS ORDERED: BACL10TA (08:54)
[2019-06-17 09:00] LABS: ALANINE AMINOTRANSFERASE 21 U/L (0-55); ALBUMIN 4.3 GM/DL (3.2-4.5); ALKALINE PHOSPHATASE 84 U/L (40-136); BILIRUBIN,TOTAL 0.5 MG/DL (0.1-1.0); BUN/CREATININE RATIO 26; CARBON DIOXIDE 22 MMOL/L (21-32); CHLORIDE 102 MMOL/L (98-107); CREATININE SERUM 0.85 MG/DL (0.60-1.30); GFR ESTIMATED > 60; GLUCOSE 113 MG/DL (70-105); MAGNESIUM 1.8 MG/DL (1.6-2.4); POTASSIUM 4.1 MMOL/L (3.6-5.0); SODIUM 133 MMOL/L (135-145); TOTAL PROTEIN 7.3 GM/DL (6.4-8.2)
[2019-06-17] MEDS ORDERED: KETOROLAC 30 MG/ML VIAL IVP ONE (09:45)
[2019-06-17 09:52] LABS: BILIRUBIN,URINE NEGATIVE (NEGATIVE); CLARITY,URINE CLEAR; COLOR,URINE YELLOW; GLUCOSE, URINE (UA) NEGATIVE (NEGATIVE); KETONES,URINE NEGATIVE (NEGATIVE); LEUKOCYTE ESTERASE ,URINE NEGATIVE (NEGATIVE); NITRITE,URINE NEGATIVE (NEGATIVE); PH,URINE 5 (5-9); PROTEIN,URINE 1+ (NEGATIVE); UROBILINOGEN,URINE NORMAL (NORMAL)
[2019-06-17 10:00] LABS: AMORPHOUS SEDIMENT,UR RARE AMOR URATES /LPF; BACTERIA,URINE FEW /HPF; RBC,URINE RARE /HPF; SQUAMOUS EPITHELIAL CELL,UR 0-2 /HPF
[2019-06-17] MEDS ORDERED: HYDROcodone/APAP 5 MG/325 MG (LORTAB) TAB PO ONE (10:30)
[2019-06-17] MEDS ORDERED: ACHD5005 PO (10:35)
[2019-06-17] MEDS ORDERED: CEPH-507 PO (10:35)
[2019-06-17] MEDS ORDERED: PRD20T PO (10:35)
--- NOTE | 2019-06-17 10:35 | ED General ---
General Chief Complaint: Hip/Pelvic Problems Stated Complaint: MUSCLE SPASMS Nursing Triage Note: PT AMBULATE TO ROOM 05 WITH C/O RIGHT HIP PAIN X 1 WEEK. PT STATES THAT LAST WEEK HE WAS BENT OVER PULLING WEEDS AND FELT SOMETHING "POP" IN HIS RIGHT HIP. C/O PAIN 10/10 SINCE THE INJURY. Nursing Sepsis Screen: No Definite Risk Source of Information: Patient Exam Limitations: No Limitations Allergies and Home Medications Allergies Coded Allergies: Shellfish (Verified Allergy, Unknown, 12/13/07) Sulfa (Sulfonamide Antibiotics) (Verified Allergy, Unknown, 12/13/07) Home Medications Cephalexin 500 Mg Capsule, 500 MG PO TID Prescribed by: RICH JEAN on 06/17/19 1035 Hydrocodone Bit/Acetaminophen 1 Tab Tab, 0.5-1 EACH PO Q4-6HR PRN for PAIN-MO DERATE Prescribed by: RICH JEAN on 06/17/19 1035 Prednisone 20 Mg Tab, 20 MG PO DAILY Prescribed by: RICH JEAN on 06/17/19 1035 Past Kjzyqar-Fapvmk-Kreanm Hx Patient Social History Alcohol Use: Occasionally Uses Number of Drinks Today: GG Alcohol Beverage of Choice: Beer, Whiskey Recreational Drug Use: No Smoking Status: Never a Smoker 2nd Hand Smoke Exposure: No Recent Foreign Travel: No Contact w/Someone Who Travel: No Recent Infectious Disease Expo: No Recent Hopitalizations: No Physical Abuse: No Sexual Abuse: No Mistreated: No Fear: No Seasonal Allergies Seasonal Allergies: Yes Past Medical History Surgeries: Yes (INGUINAL HERNIA, CARDIAC ABLATION) Abdominal, Appendectomy, Cardiac Respiratory: No Cardiac: Yes (CARDIAC ABLATION) Atrial Fibrillation, Irregular Heartbeat Neurological: No Reproductive Disorders: No Sexually Transmitted Disease: No HIV/AIDS: No Genitourinary: Yes Benign Prostatic Hyperpl Gastrointestinal: No Musculoskeletal: No Endocrine: No HEENT: Yes Cataract Cancer: No Psychosocial: No Integumentary: No Blood Disorders: Yes (iron def anemia) Physical Exam Vital Signs Vital Signs - First Documented 06/17/19 08:17 Temp 99.2 Pulse 97 Resp 18 B/P (MAP) 187/129 (148) Pulse Ox 98 O2 Delivery Room Air Capillary Refill : Less Than 3 Seconds Height, Weight, BMI Height: 6'2.00" Weight: 194lbs. 0.0oz. [id number]; 25.2 BMI Method:Stated Progress/Results/Core Measures Suspected Sepsis Recent Fever Within 48 Hours: No Infection Criteria Present: None New/Unexplained Altered Menta: No Sepsis Screen: No Definite Risk SIRS Temperature:99.2 Pulse: 97 Respiratory Rate: 18 Laboratory Tests 06/17/19 08:19: White Blood Count 5.9 Blood Pressure 187 /129 Mean: 148 Laboratory Tests 06/17/19 08:19: Creatinine 0.85, Platelet Count 326, Total Bilirubin 0.5 Results/Orders Lab Results Laboratory Tests Test 06/17/19 08:19 06/17/19 09:40 Range/Units White Blood Count 5.9 4.3-11.0 10^3/uL Red Blood Count 5.10 4.35-5.85 10^6/uL Hemoglobin 12.5 L 13.3-17.7 G/DL Hematocrit 40 40-54 % Mean Corpuscular Volume 78 L 80-99 FL Mean Corpuscular Hemoglobin 25 25-34 PG Mean Corpuscular Hemoglobin Concent 31 L 32-36 G/DL Red Cell Distribution Width 17.1 H 10.0-14.5 % Platelet Count 326 130-400 10^3/uL Mean Platelet Volume 9.5 7.4-10.4 FL Neutrophils (%) (Auto) 46 42-75 % Lymphocytes (%) (Auto) 42 12-44 % Monocytes (%) (Auto) 10 0-12 % Eosinophils (%) (Auto) 2 0-10 % Basophils (%) (Auto) 0 0-10 % Neutrophils # (Auto) 2.7 1.8-7.8 X 10^3 Lymphocytes # (Auto) 2.5 1.0-4.0 X 10^3 Monocytes # (Auto) 0.6 0.0-1.0 X 10^3 Eosinophils # (Auto) 0.1 0.0-0.3 10^3/uL Basophils # (Auto) 0.0 0.0-0.1 10^3/uL Sodium Level 133 L 135-145 MMOL/L Potassium Level 4.1 3.6-5.0 MMOL/L Chloride Level 102 98-107 MMOL/L Carbon Dioxide Level 22 21-32 MMOL/L Anion Gap 9 5-14 MMOL/L Blood Urea Nitrogen 22 H 7-18 MG/DL Creatinine 0.85 0.60-1.30 MG/DL Estimat Glomerular Filtration Rate > 60 BUN/Creatinine Ratio 26 Glucose Level 113 H 70-105 MG/DL Calcium Level 9.0 8.5-10.1 MG/DL Corrected Calcium 8.8 8.5-10.1 MG/DL Magnesium Level 1.8 1.6-2.4 MG/DL Total Bilirubin 0.5 0.1-1.0 MG/DL Aspartate Amino Transf (AST/SGOT) 25 5-34 U/L Alanine Aminotransferase (ALT/SGPT) 21 0-55 U/L Alkaline Phosphatase 84 40-136 U/L Total Protein 7.3 6.4-8.2 GM/DL Albumin 4.3 3.2-4.5 GM/DL Urine Color YELLOW Urine Clarity CLEAR Urine pH 5 5-9 Urine Specific [place] 1.025 H 1.016-1.022 Urine Protein 1+ H NEGATIVE Urine Glucose (UA) NEGATIVE NEGATIVE Urine Ketones NEGATIVE NEGATIVE Urine Nitrite NEGATIVE NEGATIVE Urine Bilirubin NEGATIVE NEGATIVE Urine Urobilinogen NORMAL NORMAL MG/DL Urine Leukocyte Esterase NEGATIVE NEGATIVE Urine RBC (Auto) 1+ H NEGATIVE Urine RBC RARE /HPF Urine WBC 10-25 H /HPF Urine Squamous Epithelial Cells 0-2 /HPF Urine Crystals PRESENT H /LPF Urine Amorphous Sediment RARE HARRISON URATES H /LPF Urine Bacteria FEW H /HPF Urine Casts NONE /LPF Urine Mucus MODERATE H /LPF Urine Culture Indicated YES My Orders Orders - RICH FOSS MD Cbc With Automated Diff (06/17/19 08:20) Comprehensive Metabolic Panel (06/17/19 08:20) Magnesium (06/17/19 08:20) Ed Iv/Invasive Line Start (06/17/19 08:20) Iron Tibc %Sat & Ferritin (06/17/19 08:23) Ua Culture If Indicated (06/17/19 09:03) Ketorolac Injection (Toradol Injection) (06/17/19 09:45) Urine Culture (06/17/19 09:40) Hydrocodone/Apap 5/325 Tablet (Lortab 5 (06/17/19 10:30) Medications Given in ED Current Medications Medications Dose Ordered Sig/Valentín Route Start Time Stop Time Status Last Admin Dose Admin Ketorolac Tromethamine 15 mg ONCE ONCE IVP 06/17/19 09:45 06/17/19 09:46 DC 06/17/19 09:50 15 MG Vital Signs/I&O 06/17/19 08:17 Temp 99.2 Pulse 97 Resp 18 B/P (MAP) 187/129 (148) Pulse Ox 98 O2 Delivery Room Air Capillary Refill : Less Than 3 Seconds Blood Pressure Mean: 148 Departure Impression Primary Impression: Urinary tract infection Qualified Codes: N39.0 - Urinary tract infection, site not specified Additional Impressions: Right hip pain Pain of back and right lower extremity Iron deficiency anemia Qualified Codes: D50.9 - Iron deficiency anemia, unspecified Muscle spasm Disposition: HOME, SELF-CARE Condition: Improved Departure-Patient Inst. Decision time for Depature: 10:20 Referrals: CONY BAUTISTA MD (PCP/Family) Primary Care Physician Patient Instructions: Hip Bursitis (DC), Urinary Tract Infection, Adult (DC) Add. Discharge Instructions: Complete your antibiotic as prescribed. Increase your intake of non-caffeinated clear liquids. Follow-up with Dr. Bautista late this week or early next week to review urine culture results and have a repeat exam. For treatment of pain you may continue taking Arthrotec. Add hydrocodone as prescribed for breakthrough pain. Prednisone may cause agitation in senior adults. Discontinue if you experience significant agitation. Take the prednisone steroids as prescribed. Take early in the day with food or milk to avoid sleep disturbance and stomach upset. Return to the emergency room if you have worsening symptoms despite these measures. All discharge instructions reviewed with patient and/or family. Voiced understanding. Scripts Hydrocodone Bit/Acetaminophen (Hydrocodone/Acetaminophen 5/325mg Tablet) 1 Tab Tab 0.5-1 EACH PO Q4-6HR PRN for PAIN-MODERATE MDD 10, #10 TAB Prov: RICH FOSS MD 06/17/19 Cephalexin (Keflex) 500 Mg Capsule 500 MG PO TID, #20 CAP Prov: RICH FOSS MD 06/17/19 Prednisone (Prednisone) 20 Mg Tab 20 MG PO DAILY, #5 TAB 0 Refills Prov: RICH FOSS MD 06/17/19 Copy Copies To 1: CONY BAUTISTA MD, JOSHUA T MD Jun 17, 2019 10:35
[2019-06-17 10:51] VITALS: BP 157/106
== END 2019-06-17 10:51 | disposition home or self-care (01) ==
LOC: EDUNIT# 08:02 → ER 08:03
DX: M62.838 Other muscle spasm (principal); M25.551 Pain in right hip; N39.0 Urinary tract infection, site not specified; M54.9 Dorsalgia, unspecified; M79.604 Pain in right leg; D50.9 Iron deficiency anemia, unspecified; I48.91 Unspecified atrial fibrillation; Z88.2 Allergy status to sulfonamides; Z90.49 Acquired absence of other specified parts of digestive tract; X50.1XXA Overexertion from prolonged static or awkward postures, initial encounter
CPT/HCPCS: 36415; 80053; 81000; 82728; 83540; 83735; 85025; 87077; 87088

== ENCOUNTER 2021-06-11 07:06 | Outpatient (CLI) | payer MEDICARE, OTHER ==
[~2021-06-11] VITALS: Ht 188 cm; Wt 87.3 kg
[~2021-06-11 07:06] MED LIST changes: +ACHD5005 PO; +BACL10TA; +CEPH-507 PO; +LEVO500T2 PO; +PRD20T PO
[2021-06-11] MEDS ORDERED: HYAL1CAP PO (12:01)
[2021-06-11] MEDS ORDERED: ASPI-999 PO (12:01)
[2021-06-11] MEDS ORDERED: DICL75TA2 PO (12:01)
[2021-06-11] MEDS ORDERED: ALPR0.5T7 PO (12:01)
== END 2021-06-11 12:10 | disposition home or self-care (01) ==
LOC: PREOP 07:06
PROVIDERS: ATTEND Specialist
DX: Z01.818 Encounter for other preprocedural examination (principal)

== ENCOUNTER 2021-06-18 08:19 | Day surgery (SDC) | payer MEDICARE, OTHER ==
[~2021-06-18] VITALS: Ht 188 cm; Wt 87.3 kg
[~2021-06-18 08:19] MED LIST changes: +ALPR0.5T7 PO; +DICL75TA2 PO
[2021-06-18] MEDS ORDERED: TIMOLOL MALEATE 0.5% 5 ML (TIMOPTIC) BTL OU PRN (08:30)
[2021-06-18] MEDS ORDERED: MOXIFLOXACIN OPHTH SOLN 5 MG/ML 0.3 ML SYRINGE OP ONE (08:30)
[2021-06-18] MEDS ORDERED: LIDOCAINE PF 1% 2 ML VIAL IR PRN (08:30)
[2021-06-18] MEDS ORDERED: POVIDONE (BETADINE) OPHTH SOLN 5% 30 ML OP ONE (08:30)
[2021-06-18] MEDS: TETRACAINE 0.5% OPHTH SOLN 4 ML BTL (SINGLE DOSE ONLY) OU PRN ×4 (08:38→09:02)
[2021-06-18] MEDS ORDERED: MIDAZOLAM 2 MG/2 ML (VERSED) VIAL ONE (08:42)
[2021-06-18 08:45] VITALS: BP 146/97
[2021-06-18] MEDS: TROPICAMIDE 1% OPH SOLN (MYDRIACYL) 15 ML BTL OP SCH ×3 (08:47→09:02)
[2021-06-18] MEDS: PHENYLEPHRINE 10% OPHTH (NEO-SYN) 5 ML BTL OU SCH ×3 (08:47→09:02)
--- NOTE | 2021-06-18 09:24 | Ophthalmologist Pre-Op Note ---
Pre-Operative Progress Note H&P Reviewed The H&P was reviewed, patient examined and no changes noted. Date H&P Reviewed: Jun 18, 2021 Time H&P Reviewed: 09:24 Pre-Op Dx Cataract, Right Eye JUAREZ LOJA MD Jun 18, 2021 09:24
--- NOTE | 2021-06-18 09:43 | Ophthalmology Operative Report ---
Cataract removal/placement IOL PREOPERATIVE DIAGNOSIS: Cataract Right Eye POSTOPERATIVE DIAGNOSIS: Cataract Right Eye PROCEDURE: Cataract removal and placement of posterior chamber implant, right eye SURGEON: Ron Loja ANESTHESIA: Topical with sedation COMPLICATIONS: None ESTIMATED BLOOD LOSS: Minimal DESCRIPTION OF PROCEDURE: After proper informed consent was obtained, the patient, a 80 male, was taken to the Operating Room and the right eye was anesthetized with tetracaine. The right eye was then prepped and draped in the usual manner. A wire lid speculum was placed. A paracentesis was made at the left hand position. Preservative free lidocaine was injected into the anterior chamber followed by viscoelastic. A clear corneal incision was made in the temporal position. A capsulorrhexis was preformed and the central nuclear and cortical material were removed. The posterior capsule was polished and Pérez 20.0 [id number] IOL was placed into the capsular bag. The residual viscoelastic was aspirated and balanced saline solution was injected into the anterior chamber. Moxifloxacin was injected into the anterior chamber. The wound was checked and found to be water tight. The patient tolerated the procedure well without complications. RON LOJA MD Jun 18, 2021 09:43
[2021-06-18 09:48] VITALS: BP 141/66
--- NOTE | 2021-06-18 10:55 | Anesthesia-General Post-Op ---
MAC Patient Condition Mental Status/LOC: Same as Preop Cardiovascular: Satisfactory Nausea/Vomiting: Absent Respiratory: Satisfactory Pain: Controlled Complications: Absent Post Op Complications Complications None Follow Up Care/Instructions Patient Instructions None needed. Anesthesiology Discharge Order Discharge Order Patient is doing well, no complaints, stable vital signs, no apparent adverse anesthesia problems. No complications reported per nursing. VANESSA DELONG CRNA Jun 18, 2021 10:55
== END 2021-06-18 09:51 ==
LOC: SDC 08:19
PROVIDERS: ATTEND Specialist
DX: H25.11 Age-related nuclear cataract, right eye (principal); F41.9 Anxiety disorder, unspecified; M19.90 Unspecified osteoarthritis, unspecified site; Z79.899 Other long term (current) drug therapy
CPT/HCPCS: 66984; V2632

== ENCOUNTER 2021-06-28 07:20 | Outpatient (CLI) | payer MEDICARE, OTHER | END 2021-06-28 11:15 | LOC: PREOP 07:20 | PROVIDERS: ATTEND Specialist | DX: Z01.818 Encounter for other preprocedural examination (principal) ==

== ENCOUNTER 2021-07-02 06:50 | Day surgery (SDC) | payer MEDICARE, OTHER ==
[~2021-07-02] VITALS: Ht 188 cm; Wt 87.3 kg
[2021-07-02 06:59] VITALS: BP 144/100
[2021-07-02] MEDS ORDERED: TIMOLOL MALEATE 0.5% 5 ML (TIMOPTIC) BTL OU PRN (07:00)
[2021-07-02] MEDS ORDERED: POVIDONE (BETADINE) OPHTH SOLN 5% 30 ML OP ONE (07:00)
[2021-07-02] MEDS ORDERED: MOXIFLOXACIN OPHTH SOLN 5 MG/ML 0.3 ML SYRINGE OP ONE (07:00)
[2021-07-02] MEDS ORDERED: LIDOCAINE PF 1% 2 ML VIAL IR PRN (07:00)
[2021-07-02] MEDS: TETRACAINE 0.5% OPHTH SOLN 4 ML BTL (SINGLE DOSE ONLY) OU PRN ×4 (07:01→07:29)
[2021-07-02] MEDS: TROPICAMIDE 1% OPH SOLN (MYDRIACYL) 15 ML BTL OP SCH ×3 (07:11→07:29)
[2021-07-02] MEDS: PHENYLEPHRINE 10% OPHTH (NEO-SYN) 5 ML BTL OU SCH ×3 (07:11→07:29)
[2021-07-02] MEDS ORDERED: MIDAZOLAM 2 MG/2 ML (VERSED) VIAL ONE (07:46)
--- NOTE | 2021-07-02 08:04 | Ophthalmologist Pre-Op Note ---
Pre-Operative Progress Note H&P Reviewed The H&P was reviewed, patient examined and no changes noted. Date H&P Reviewed: Jul 02, 2021 Time H&P Reviewed: 08:04 Pre-Op Dx Cataract, Left Eye JUAREZ LOJA MD Jul 02, 2021 08:04
--- NOTE | 2021-07-02 08:17 | Ophthalmology Operative Report ---
Cataract removal/placement IOL PREOPERATIVE DIAGNOSIS: Cataract Left Eye POSTOPERATIVE DIAGNOSIS: Cataract Left Eye PROCEDURE: Cataract removal and placement of posterior chamber implant, left eye SURGEON: Ron Loja ANESTHESIA: Topical with sedation COMPLICATIONS: None ESTIMATED BLOOD LOSS: Minimal DESCRIPTION OF PROCEDURE: After proper informed consent was obtained, the patient, a 80 male, was taken to the Operating Room and the left eye was anesthetized with tetracaine. The left eye was then prepped and draped in the usual manner. A wire lid speculum was placed. A paracentesis was made at the left hand position. Preservative free lidocaine was injected into the anterior chamber followed by viscoelastic. A clear corneal incision was made in the temporal position. A capsulorrhexis was preformed and the central nuclear and cortical material were removed. The posterior capsule was polished and an Pérez 19.5 AU00T0 was placed into the capsular bag. The residual viscoelastic was aspirated and balanced saline solution was injected into the anterior chamber. Moxifloxacin was injected into the anterior chamber. The wound was checked and found to be water tight. The patient tolerated the procedure well without complications. RON LOJA MD Jul 02, 2021 08:17
[2021-07-02 08:25] VITALS: BP 145/86
--- NOTE | 2021-07-02 13:52 | Anesthesia-General Post-Op ---
MAC Patient Condition Mental Status/LOC: Same as Preop Cardiovascular: Satisfactory Nausea/Vomiting: Absent Respiratory: Satisfactory Pain: Controlled Complications: Absent Post Op Complications Complications None Follow Up Care/Instructions Patient Instructions None needed. Anesthesiology Discharge Order Discharge Order Patient is doing well, no complaints, stable vital signs, no apparent adverse anesthesia problems. No complications reported per nursing. HUMA BAUTISTA CRNA Jul 02, 2021 13:52
== END 2021-07-02 08:26 ==
LOC: SDC 06:50
PROVIDERS: ATTEND Specialist
DX: H25.12 Age-related nuclear cataract, left eye (principal); M19.90 Unspecified osteoarthritis, unspecified site; Z79.82 Long term (current) use of aspirin; Z79.899 Other long term (current) drug therapy; Z79.1 Long term (current) use of non-steroidal anti-inflammatories (NSAID)
CPT/HCPCS: 66984; V2632

== ENCOUNTER 2022-04-04 11:34 | Emergency (ER) | payer MEDICARE, OTHER ==
[~2022-04-04] VITALS: Ht 185.4 cm; Wt 84.4 kg
--- NOTE | 2022-04-04 11:53 | ED Fall/Injury ---
General Chief Complaint: Trauma-Non Activation Stated Complaint: FALL Source: patient Exam Limitations: no limitations History of Present Illness Date Seen by Provider: Apr 04, 2022 Time Seen by Provider: 11:49 Initial Comments Patient is a 81-year-old male who was brought to ED by for a fall. This occurred about 45 minutes ago. Patient was in the bathroom and heard patient fall. She attempted to go into the bathroom and the door was shut and was difficult to open. Patient cannot recall how he fell or what happened. Patient cannot recall what happened before this. Patient believes he hit his head but is unsure. Currently takes baby aspirin. He has no current complaints besides he just feels off. According to patient went to the dye can operator to get his eyes looked at. Patient had cataract surgery 6 months ago. This was a follow-up. Unsure if they did any type of procedure. Patient was at his current baseline before he went to the physician. Patient denies headache, dizziness, unilateral weakness, chest pain, shortness of breath, abdominal pain, vomiting, diarrhea. Patient moving all extremities. Patient with a steady gait here in the ED. Patient cannot recall what happened. states patient was repeating himself after the fall. Appears to be close to his baseline at this time. She states history of similar symptoms in the past was diagnosed with global amnesia. Patient on arrival alert and orient x3. GCS 15. Allergies and Home Medications Allergies Coded Allergies: Shellfish (Verified Allergy, Unknown, 12/13/07) Sulfa (Sulfonamide Antibiotics) (Verified Allergy, Unknown, 12/13/07) Patient Home Medication List Home Medication List Reviewed: Yes Alprazolam (Alprazolam) 0.5 Mg Tablet, 0.5 MG PO PRN, (Reported) Entered as Reported by: AYUSH NUNO on 06/11/21 120 Aspirin (Aspirin) 81 Mg Tab.chew, 81 MG PO DAILY, (Reported) Entered as Reported by: AYUSH NUNO on 06/11/211200 Diclofenac Sodium (Diclofenac Sodium) 75 Mg Tablet.dr, 75 MG PO PRN, (Reported) Entered as Reported by: AYUSH NUNO on 06/11/21 120 Hyalur AC/Chond Sul/Colg II/Aa (Hyaluronic Acid 40 mg Capsule) 1 Each Capsule, 1 EACH PO DAILY, (Reported) Entered as Reported by: AYUSH NUNO on 06/11/21 1201 Review of Systems Review of Systems Constitutional: No chills, No diaphoresis, No malaise, No weakness Eyes: Denies Blurred Vision, Denies Decreased Acuity Ears, Nose, Mouth, Throat: denies ear pain, denies ear discharge Respiratory: No cough, No dyspnea on exertion Cardiovascular: No chest pain Gastrointestinal: No abdominal pain, No diarrhea, No nausea, No vomiting Genitourinary: No decreased output, No discharge Musculoskeletal: No back pain Skin: change in hair/nails, other (Contusion to the left parietal scalp. 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: [employer] Seasonal Allergies Seasonal Allergies: Yes Past Medical History Surgeries: Yes (INGUINAL HERNIA, CARDIAC ABLATION) Abdominal, Appendectomy, Cardiac Respiratory: No Cardiac: Yes (CARDIAC ABLATION) Atrial Fibrillation, Irregular Heartbeat Neurological: No Reproductive Disorders: No Sexually Transmitted Disease: No HIV/AIDS: No Genitourinary: Yes Benign Prostatic Hyperpl Gastrointestinal: No Musculoskeletal: No Endocrine: No HEENT: Yes Cataract Cancer: No Psychosocial: No Integumentary: No Blood Disorders: Yes (iron def anemia) Physical Exam Vital Signs Vital Signs - First Documented 04/04/22 11:47 Temp 36.2 Pulse 82 Resp 15 B/P (MAP) 170/97 (121) Pulse Ox 98 O2 Delivery Room Air Capillary Refill : Height, Weight, BMI Height: 6'2.00" Weight: 194lbs. 0.0oz. 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 Small abrasion to the left elbow.) Bighorn Coma Score Best Eye Response: (4) Open Spontaneously Best Verbal Response: (5) Oriented Best Motor Response: (6) Obeys Commands Bighorn Total: 15 Progress/Results/Core Measures Results/Orders Lab Results Laboratory Tests Test 04/04/22 11:45 04/04/22 13:40 Range/Units White Blood Count 6.6 4.3-11.0 10^3/uL Red Blood Count 4.89 4.30-5.52 10^6/uL Hemoglobin 11.0 L 13.3-17.7 g/dL Hematocrit 37 L 40-54 % Mean Corpuscular Volume 75 L 80-99 fL Mean Corpuscular Hemoglobin 23 L 25-34 pg Mean Corpuscular Hemoglobin Concent 30 L 32-36 g/dL Red Cell Distribution Width 19.1 H 10.0-14.5 % Platelet Count 351 130-400 10^3/uL Mean Platelet Volume 9.5 9.0-12.2 fL Immature Granulocyte % (Auto) 0 % Neutrophils (%) (Auto) 43 42-75 % Lymphocytes (%) (Auto) 47 H 12-44 % Monocytes (%) (Auto) 9 0-12 % Eosinophils (%) (Auto) 1 0-10 % Basophils (%) (Auto) 1 0-10 % Neutrophils # (Auto) 2.8 1.8-7.8 10^3/uL Lymphocytes # (Auto) 3.1 1.0-4.0 10^3/uL Monocytes # (Auto) 0.6 0.0-1.0 10^3/uL Eosinophils # (Auto) 0.1 0.0-0.3 10^3/uL Basophils # (Auto) 0.0 0.0-0.1 10^3/uL Immature Granulocyte # (Auto) 0.0 0.0-0.1 10^3/uL Sodium Level 133 L 135-145 MMOL/L Potassium Level 3.9 3.6-5.0 MMOL/L Chloride Level 101 98-107 MMOL/L Carbon Dioxide Level 22 21-32 MMOL/L Anion Gap 10 5-14 MMOL/L Blood Urea Nitrogen 14 7-18 MG/DL Creatinine 0.83 0.60-1.30 MG/DL Estimat Glomerular Filtration Rate 89 BUN/Creatinine Ratio 17 Glucose Level 131 H 70-105 MG/DL Calcium Level 8.5 8.5-10.1 MG/DL Corrected Calcium 8.3 L 8.5-10.1 MG/DL Magnesium Level 2.2 1.6-2.4 MG/DL Total Bilirubin 0.4 0.1-1.0 MG/DL Aspartate Amino Transf (AST/SGOT) 32 5-34 U/L Alanine Aminotransferase (ALT/SGPT) 34 0-55 U/L Alkaline Phosphatase 94 40-136 U/L Troponin I < 0.028 <0.028 NG/ML Total Protein 7.2 6.4-8.2 GM/DL Albumin 4.2 3.2-4.5 GM/DL Lipase 63 8-78 U/L Urine Color YELLOW Urine Clarity CLEAR Urine pH 6.0 5-9 Urine Specific [place] >=1.030 1.016-1.022 Urine Protein TRACE H NEGATIVE Urine Glucose (UA) NEGATIVE NEGATIVE Urine Ketones NEGATIVE NEGATIVE Urine Nitrite NEGATIVE NEGATIVE Urine Bilirubin NEGATIVE NEGATIVE Urine Urobilinogen 0.2 < = 1.0 MG/DL Urine Leukocyte Esterase NEGATIVE NEGATIVE Urine RBC (Auto) NEGATIVE NEGATIVE Urine RBC NONE /HPF Urine WBC NONE /HPF Urine Squamous Epithelial Cells NONE /HPF Urine Crystals PRESENT H /LPF Urine Calcium Oxalate Crystals MODERATE H /LPF Urine Bacteria NEGATIVE /HPF Urine Casts NONE /LPF Urine Mucus SMALL H /LPF Urine Culture Indicated NO My Orders Orders - KARINE ALFARO PA Cbc With Automated Diff (04/04/22 11:46) Comprehensive Metabolic Panel (04/04/22 11:46) Ua Culture If Indicated (04/04/22 11:46) Ekg Tracing (04/04/22 11:46) Magnesium (04/04/22 11:46) Troponin I Stewart (04/04/22 11:46) Orthostatic Vital Signs (Adult (04/04/22 11:46) Chest 1 View, Ap/Pa Only (04/04/22 11:46) Lipase (04/04/22 11:46) Ct Head Wo (04/04/22 11:48) Vital Signs/I&O 04/04/22 04/04/22 11:47 14:44 Temp 36.2 36.2 Pulse 82 83 Resp 15 20 B/P (MAP) 170/97 (121) 147/89 Pulse Ox 98 97 O2 Delivery Room Air Room Air Comment Sinus rhythm with first-degree AV block, right bundle branch block, 74 bpm, QRS duration 155 MS, QTc 419 MS Departure Communication (PCP) According patient history of global amnesia. Patient had his eyes dilated today at [facility]. Patient went home he fell in the bathroom. heard patient fall hitting the door. Patient was confused and was repeating words. On arrival patient appeared at his normal baseline according to . Patient NIH is 0. He does have small abrasion to the left elbow and a contusion left proximal scalp. Patient cannot recall the fall immediately afterwards. After about an hour here patient states he he remembers attempting to put on his shorts and fell hitting the door. He states this was secondary because of having some urinary symptoms of burning with urination. This occurred when he went to the dye can operator this morning. Concern for a possible hair in his urethra. No penile itching. Urinalysis was negative for infection or blood. No abdominal pain, flank pain, chest pain, shortness of breath. Due to the unclear cause of the fall lab work was ordered. Since CT scan the head was negative for acute abnormality. Chest x-ray negative for acute abnormality. Denies any cough, chest pain or shortness of breath suggesting pneumonia which the chest x-ray suggest cannot exclude infiltrate. EKG sinus rhythm with first- degree AV block right bundle branch block which appears to be chronic. No evidence of arrhythmia. Troponin negative. Lab work was otherwise unremarkable. Patient was not orthostatic hypotensive. Patient was observed here for 2 hours with improvement of symptoms. No focal neural deficits. He states he feels much better. He states his vision was slightly blurry after the procedure today which may been associated to him fallen. He reports similar type episode several years ago and was diagnosed with global amnesia. He states he has had multiple other type of episodes. I Was able to recall previous chart in 2013 similar episode with negative work-up with MRI. No history of strokes. No evidence of strokelike symptoms at this time. Patient will be discharged with outpatient follow-up with primary care physician follow-up in 2 to 3 days. Patient was discussed with Dr. Bautista his pcp who felt comfortable with this decision for outpatient follow up. Patient blood pressure improved to 148/89 Impression Primary Impression: Fall Disposition: 01 HOME, SELF-CARE Condition: Stable Departure-Patient Inst. Decision time for Depature: 14:30 Referrals: CONY BAUTISTA MD (PCP/Family) Primary Care Physician Patient Instructions: Syncope (Fainting) (DC) Add. Discharge Instructions: Recommend following up with your primary care physician for further evaluation All discharge instructions reviewed with patient and/or family. Voiced understanding. KARINE ALFARO Apr 04, 2022 11:53
[2022-04-04 11:55] LABS: BASOPHILS % (AUTO) 1 % (0-10); EOSINOPHILS # (AUTO) 0.1 10^3/uL (0.0-0.3); EOSINOPHILS % (AUTO) 1 % (0-10); HEMATOCRIT 37 % (40-54); LYMPHOCYTES # (AUTO) 3.1 10^3/uL (1.0-4.0); LYMPHOCYTES % (AUTO) 47 % (12-44); MEAN CORPUSCULAR HEMOGLOBIN 23 pg (25-34); MEAN CORPUSCULAR HGB CONC 30 g/dL (32-36); MEAN CORPUSCULAR VOLUME 75 fL (80-99); MEAN PLATELET VOLUME 9.5 fL (9.0-12.2); MONOCYTES # (AUTO) 0.6 10^3/uL (0.0-1.0); MONOCYTES % (AUTO) 9 % (0-12); NEUTROPHILS # (AUTO) 2.8 10^3/uL (1.8-7.8); NEUTROPHILS % (AUTO) 43 % (42-75); PLATELET COUNT 351 10^3/uL (130-400); WHITE BLOOD COUNT 6.6 10^3/uL (4.3-11.0)
[2022-04-04 12:01] LABS: ALBUMIN 4.2 GM/DL (3.2-4.5)
[2022-04-04 12:02] LABS: CHLORIDE 101 MMOL/L (98-107); POTASSIUM 3.9 MMOL/L (3.6-5.0); SODIUM 133 MMOL/L (135-145)
[2022-04-04 12:03] LABS: CALCIUM 8.5 MG/DL (8.5-10.1)
[2022-04-04 12:04] LABS: GLUCOSE 131 MG/DL (70-105); TOTAL PROTEIN 7.2 GM/DL (6.4-8.2)
[2022-04-04 12:05] LABS: CARBON DIOXIDE 22 MMOL/L (21-32)
[2022-04-04 12:06] LABS: BILIRUBIN,TOTAL 0.4 MG/DL (0.1-1.0)
[2022-04-04 12:08] LABS: ALKALINE PHOSPHATASE 94 U/L (40-136); CREATININE SERUM 0.83 MG/DL (0.60-1.30); GFR ESTIMATED 89
[2022-04-04 12:09] LABS: BUN/CREATININE RATIO 17
[2022-04-04 12:11] LABS: ALANINE AMINOTRANSFERASE 34 U/L (0-55); MAGNESIUM 2.2 MG/DL (1.6-2.4)
[2022-04-04 12:12] LABS: LIPASE 63 U/L (8-78)
--- NOTE | 2022-04-04 12:20 | Diagnostic Imaging Report ---
INDICATION: Fall, possible loss of consciousness. Frontal chest obtained at 12:02 p.m. and compared to 11/24/2018 FINDINGS: Heart is normal in size. Mediastinal silhouette appears unremarkable. There is mild central vascular prominence without jer edema. There is some questionable mild infiltrate in the left base along the left heart border. There is no pneumothorax or pleural fluid. IMPRESSION: Mild central vascular prominence without edema. There is some mild infiltrate along the left heart border, early pneumonia cannot be excluded. Dictated by: Dictated on workstation # [id number]
--- NOTE | 2022-04-04 12:23 | Diagnostic Imaging Report ---
INDICATION: Altered mental status, possible loss of consciousness. TECHNIQUE: Multiple contiguous axial images were obtained through the brain without the use of intravenous contrast. Auto Exposure Controls were utilized during the CT exam to meet ALARA standards for radiation dose reduction. COMPARISON: Comparison is made with 11/24/2018. FINDINGS: There are no extra-axial fluid collections. No intracranial hemorrhage. No intracranial mass or mass effect. No midline shift. The ventricles are normal in size and position. There were no focal parenchymal abnormalities in the brain. Calvarial windows show no acute abnormality. IMPRESSION: No acute intracranial abnormality. Dictated by: Dictated on workstation # [id number]
[2022-04-04 13:47] LABS: BILIRUBIN,URINE NEGATIVE (NEGATIVE); CLARITY,URINE CLEAR; COLOR,URINE YELLOW; GLUCOSE, URINE (UA) NEGATIVE (NEGATIVE); KETONES,URINE NEGATIVE (NEGATIVE); LEUKOCYTE ESTERASE ,URINE NEGATIVE (NEGATIVE); NITRITE,URINE NEGATIVE (NEGATIVE); PROTEIN,URINE TRACE (NEGATIVE)
[2022-04-04 14:13] LABS: BACTERIA,URINE NEGATIVE /HPF
[2022-04-04 14:15] LABS: CALCIUM OXALATE CRYSTALS,UR MODERATE /LPF
[2022-04-04 14:44] VITALS: BP 147/89
== END 2022-04-04 14:44 | disposition home or self-care (01) ==
LOC: EDUNIT# 11:34 → ER 11:35
DX: S00.03XA Contusion of scalp, initial encounter (principal); S50.312A Abrasion of left elbow, initial encounter; Z79.82 Long term (current) use of aspirin; W18.2XXA Fall in (into) shower or empty bathtub, initial encounter; Y92.002 Bathroom of unspecified non-institutional (private) residence as the place of occurrence of the external cause
CPT/HCPCS: 36415; 70450; 71045; 80053; 81000; 83690; 83735; 84484; 85025; 93005